=== PATIENT | male | born 1970 | race Asian ===

== ENCOUNTER 2021-02-22 18:39 | Emergency (ER) | payer OTHER ==
[~2021-02-22] VITALS: Ht 154.9 cm; Wt 59.1 kg
[2021-02-22 18:51] VITALS: BP 112/73
[2021-02-22] MEDS ORDERED: acetaminophen 325mg tablet PO ONE (18:55)
--- NOTE | 2021-02-22 19:08 | NUR ---
pt c/o starp left side cp. pt stating wants to leave and asking where door is. pt refused tylenol. pt accepted xray. brian barkley aware.
[2021-02-22 19:19] LABS: BASOPHILS % (AUTO) 0.3 % (0-1); EOSINOPHILS % (AUTO) 0.6 % (0-6); HEMATOCRIT 44.3 % (42.0-52.0); LYMPHOCYTES % (AUTO) 17.3 % (21-51); MEAN CORPUSCULAR HEMOGLOBIN 29.5 PG (27.0-31.0); MEAN CORPUSCULAR HGB CONC 33.9 g/dL (33.0-36.5); MEAN CORPUSCULAR VOLUME 86.9 FL (78-98); MEAN PLATELET VOLUME 7.3 FL (7.4-10.4); MONOCYTES # (AUTO) 0.6 X10'3 (0-0.9); MONOCYTES % (AUTO) 9.8 % (2-12); NEUTROPHILS # (AUTO) 4.1 X10'3 (1.8-7.7); PLATELET COUNT 246 X10'3 (140-440); RED BLOOD COUNT 5.09 X10'6 (4.70-6.10); RED CELL DISTRIBUTION WIDTH 13.7 % (11.5-14.5); WHITE BLOOD COUNT 5.7 X10'3 (4.5-11.0)
--- NOTE | 2021-02-22 19:33 | NUR ---
pt refused xray, ct and ekg. brian rasmussen
--- NOTE | 2021-02-22 19:40 | NUR ---
PT BROUGHT TO RAP AREA, REFUSING CARE
[2021-02-22 19:42] LABS: ALANINE AMINOTRANSFERASE 26 U/L (12-78); ALBUMIN 3.2 G/DL (3.4-5.0); ALBUMIN/GLOBULIN RATIO 0.6 (1.1-1.5); ALKALINE PHOSPHATASE 60 IU/L (46-116); ANION GAP 9 (8-16); ASPARTATE AMINO TRANSFERASE 41 U/L (10-37); BILIRUBIN,TOTAL 0.3 MG/DL (0.1-1.0); BLOOD UREA NITROGEN 12 MG/DL (7-18); BUN/CREATININE RATIO 10.2 (5.4-32.0); CALCIUM 8.7 MG/DL (8.5-10.1); CHLORIDE 101 MMOL/L (99-107); CREATININE 1.18 MG/DL (0.60-1.10); GLUCOSE 95 MG/DL (70-104); POTASSIUM 4.2 MMOL/L (3.5-5.1); SODIUM 136 MMOL/L (135-145); TOTAL CARBON DIOXIDE 25.7 MMOL/L (24-32); TOTAL PROTEIN 8.9 G/DL (6.4-8.2); eGFR 65 ML/MIN
--- NOTE | 2021-02-22 20:30 | NUR ---
ASKED PT WHAT IT IS HE WANTS US TO DO FOR HIM SINCE HE IS REFUSING CARE AND TESTS. 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 GAVE WATER AND REFUSING TO WEAR MASK. WILL ASK SECURITY FOR ASSISTANCE.
--- NOTE | 2021-02-22 21:15 | NUR ---
PT ESCORTED OFF THE PROPERTY WITH SECURITY'S ASSISTANCE.
== END 2021-02-22 21:25 | disposition home or self-care (01) ==
LOC: ER 18:40
DX: U07.1 COVID-19 (principal); R51.9 Headache, unspecified; R50.9 Fever, unspecified
CPT/HCPCS: 36415; 80053; 83605; 83880; 84484; 85025; 87040; 87635; 99283; C9803